=== PATIENT | male | born 1950 | race Caucasian/White ===

== ENCOUNTER 2024-05-18 11:13 | Emergency (ER) | payer MEDICARE, OTHER ==
[~2024-05-18] VITALS: Ht 182.9 cm; Wt 140.8 kg
[~2024-05-18 11:13] MED LIST: AMOX-580 PO; GLIM4TAB7 PO; IBUP-1984 PO; METF-1203 PO; NORCO10T PO
[2024-05-18 11:55] VITALS: TEMP 98
[2024-05-18 15:46] VITALS: BP 215/115; PULSE 76; O2SAT 95
[2024-05-18 15:47] VITALS: RESP 16
[2024-05-18] MEDS ORDERED: LOSA50TA64 PO (15:58)
== END 2024-05-18 16:05 | disposition home or self-care (01) ==
LOC: ER 11:14
DX: S99.822A Other specified injuries of left foot, initial encounter (principal); E11.40 Type 2 diabetes mellitus with diabetic neuropathy, unspecified; Z88.8 Allergy status to other drugs, medicaments and biological substances; Z79.1 Long term (current) use of non-steroidal anti-inflammatories (NSAID); Z79.84 Long term (current) use of oral hypoglycemic drugs; Z79.899 Other long term (current) drug therapy; Z72.89 Other problems related to lifestyle; Z60.2 Problems related to living alone; X58.XXXA Exposure to other specified factors, initial encounter; Y93.89 Activity, other specified; Y92.89 Other specified places as the place of occurrence of the external cause; Y99.8 Other external cause status
CPT/HCPCS: 99285

== ENCOUNTER 2025-03-27 22:12 | Emergency (ER) | payer MEDICARE, SELFPAY ==
[~2025-03-27] VITALS: Ht 182.9 cm; Wt 145.4 kg
[~2025-03-27 22:12] MED LIST changes: +LOSA50TA64 PO
[2025-03-27 22:29] VITALS: TEMP 97.8
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
[2025-03-28] MEDS ORDERED: SILV20CR13 TOP (01:35)
[2025-03-28] MEDS: silver sulfadiazine cream 50gm TP ONE (03:17)
[2025-03-28 03:38] VITALS: BP 178/95; PULSE 88; RESP 16; O2SAT 94
== END 2025-03-28 03:39 | disposition home or self-care (01) ==
LOC: ER 22:13
DX: T24.201A Burn of second degree of unspecified site of right lower limb, except ankle and foot, initial encounter (principal); T22.111A Burn of first degree of right forearm, initial encounter; I11.0 Hypertensive heart disease with heart failure; I50.9 Heart failure, unspecified; E11.9 Type 2 diabetes mellitus without complications; Z87.891 Personal history of nicotine dependence; Z88.0 Allergy status to penicillin; Z88.8 Allergy status to other drugs, medicaments and biological substances; Z90.49 Acquired absence of other specified parts of digestive tract; X58.XXXA Exposure to other specified factors, initial encounter; Y93.89 Activity, other specified; Y92.89 Other specified places as the place of occurrence of the external cause; Y99.8 Other external cause status
CPT/HCPCS: 16020; 96372; 99283; A6258; A6446; A6449; J1171